=== PATIENT | male | born 1965 | race African-American/Black ===

== ENCOUNTER → 2022-03-11 10:20 | Outpatient (CLI) | payer OTHER, SELFPAY ==
--- NOTE | 2022-03-11 | DI.MRI.S_ITS ---
PROCEDURE: MR HAND RT WO CON INDICATIONS: Localized swelling, mass lump, right upper limb TECHNIQUE: Noncontrast coronal T1 spin echo and T2 fast spin echo with fat saturation, axial proton density fast spin echo and T2 fast spin echo with fat saturation, sagittal T1 spin echo and STIR through the hand and fingers. COMPARISON: None. FINDINGS: Image quality: Excellent. Bones: The bones are normally aligned, without marrow contusions or fractures. No intra-osseous lesions. 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 Interphalangeal joint(s): The accessory and proper collateral ligaments appear intact. The volar plate demonstrates normal morphology. The extensor central slips appear intact on sagittal images. Metacarpophalangeal joint(s): The accessory and proper collateral ligaments appear intact, as well as the volar plate and adjacent deep transverse metacarpal ligaments. The sagittal bands of the extensor akins appear normal. Extensor apparatus: The central slips insert normally on the middle phalangeal base. The conjoint and terminal tendons insert normally on the distal phalangeal bases. More proximal portions of the extensor tendons also appear normal. Flexor apparatus: The flexor digitorum superficialis and profundus tendons both appear intact. All annular and cruciform pulleys appear intact, without adjacent soft tissue edema. Soft tissues: Surface skin marker is placed over dorsal aspect of right hand at the level of 1st dorsal interosseous muscle. No discrete soft tissue mass is identified in this area. Visualized muscles demonstrate normal bulk and internal signal. No intramuscular masses identified. There is suggestion of a small ganglion cyst over dorsal aspect of proximal scaphoid and measures 9 x 8 x 3 mm in size. IMPRESSION: 1. No soft tissue mass is seen over dorsal aspect of right hand at patient's reported area of palpable lump. No fluid collection is seen. No underlying muscle signal abnormality. 2. Suggestion of a small ganglion cyst over dorsal aspect of proximal scaphoid and measures 9 x 8 x 3 mm in size. 3. 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 No fracture or dislocation. No marrow edema. No suspicious intraosseous lesion. Dictated by: Moiz Vizcarra M.D. on 03/14/2022 at 8:25 Approved by: Moiz Vizcarra M.D. on 03/14/2022 at 8:31
== END ==
PROVIDERS: Referring Provider Orthopaedic Surgery; Visit Provider Orthopaedic Surgery
DX: R22.31 Localized swelling, mass and lump, right upper limb (principal)
CPT/HCPCS: 73218